=== PATIENT | female | born 1970 | race Caucasian/White ===

== ENCOUNTER 2020-06-10 02:07 | Emergency (ER) | payer OTHER ==
[~2020-06-10] VITALS: Ht 165.1 cm; Wt 52.2 kg
== END 2020-06-10 11:50 | disposition home or self-care (01) ==
LOC: ER 02:07
DX: N21.1 Calculus in urethra (principal); N20.0 Calculus of kidney; R10.11 Right upper quadrant pain; R11.11 Vomiting without nausea